=== PATIENT | male | born 1965 | race African-American/Black ===

== ENCOUNTER 2024-05-11 06:55 | Emergency (ER) | payer OTHER ==
[~2024-05-11] VITALS: Ht 167.6 cm; Wt 70.0 kg
[~2024-05-11 06:55] MED LIST: METF-414 PO
[2024-05-11 06:56] VITALS: BP 156/79; PULSE 98; RESP 20; TEMP 36.9; O2SAT 100
[2024-05-11 07:57] VITALS: TEMP 98.7
[2024-05-11] MEDS: ACETAMINOPHEN 325MG TABLET PO ONE (07:57)
== END 2024-05-11 08:47 | disposition home or self-care (01) ==
LOC: ER 06:55
DX: M25.561 Pain in right knee (principal); M25.562 Pain in left knee; M54.2 Cervicalgia; M54.50 Low back pain, unspecified; I10 Essential (primary) hypertension; E78.5 Hyperlipidemia, unspecified; E11.9 Type 2 diabetes mellitus without complications; V89.2XXA Person injured in unspecified motor-vehicle accident, traffic, initial encounter; Y93.89 Activity, other specified; Y92.410 Unspecified street and highway as the place of occurrence of the external cause; Y99.8 Other external cause status
CPT/HCPCS: 99283